=== PATIENT | male | born 1935 | race Caucasian/White ===

== ENCOUNTER 2020-02-02 07:12 | Inpatient (IN) | payer MEDICARE, OTHER ==
[~2020-02-02] VITALS: Ht 180.3 cm; Wt 85.7 kg
[2020-02-02] VITALS (15 sets, daily range): BP systolic 121–162; BP diastolic 49–106
--- NOTE | 2020-02-02 07:15 | NUR ---
PT DOES NOT HAVE A HX OF SEIZURES. PER EMS, PT'S STATED THAT THE PT FELL AND HIT HIS HEAD THE OTHER DAY. PT HAS HX OF FALLS.
--- NOTE | 2020-02-02 07:15 | NUR ---
IV LINE ESTABLISHED BLOOD DRAWN AND SENT TO LAB.
--- NOTE | 2020-02-02 07:15 | NUR ---
WICHO RA WITH A C/O MULTIPLE FOCAL SEIZURES AT HOME AND A FEW EN ROUTE TO THE HOSPITAL. PT IS AA&O X3. DR ARCINIEGA IS AT THE BEDSIDE. PT IS ON THE MONITOR AND POX. SR UP X2 AND PADDED. SEIZURE PRECAUTIONS IMPLEMENTED.
--- NOTE | 2020-02-02 07:20 | NUR ---
PT APPEARS TO BE HAVING A SEIZURE. DR ARCINIEGA IS AT THE BEDSIDE. SEIZURE RULED OUT BY DR ARCINIEGA. EKG ORDERED.
[2020-02-02 07:34] LABS: BASOPHILS # (AUTO) 0.1 /CMM (0.0-0.2); BASOPHILS % (AUTO) 0.6 % (0.0-2.0); EOSINOPHILS % (AUTO) 0.2 % (0.0-6.0); HEMATOCRIT 35 % (39-51); HEMOGLOBIN 10.6 g/dL (13.5-17.5); LYMPHOCYTES # (AUTO) 4.7 /CMM (0.8-4.8); MEAN CORPUSCULAR HGB CONC 31 g/dl (31.0-36.0); MEAN CORPUSCULAR VOLUME 80 fL (80-96); MONOCYTES % (AUTO) 5.7 % (2.0-12.0); NEUTROPHILS # (AUTO) 12.1 /CMM (1.8-8.9); NEUTROPHILS % (AUTO) 67.5 % (43.0-81.0); PLATELET COUNT (AUTO) 240 /CMM (150-450); RED BLOOD CELL COUNT(AUTO) 4.33 MIL/uL (4.5-6.0)
[2020-02-02 07:42] LABS: CARBON DIOXIDE 24 mmol/L (21-32); CHLORIDE 98 mmol/L (98-107); GLUCOSE 146 mg/dL (74-106); POTASSIUM 4.2 mmol/L (3.5-5.1); SODIUM SERUM 136 mmol/L (136-145); UREA NITROGEN, BLOOD 77 mg/dL (7-18)
[2020-02-02 07:51] LABS: CREATININE 9.5 mg/dL (0.6-1.3); MAGNESIUM 2.6 mg/dL (1.8-2.4)
--- NOTE | 2020-02-02 07:52 | NUR ---
areli López.5 made aware.
[2020-02-02 07:55] LABS: ALANINE AMINOTRANSFERASE 28 U/L (12-78); ALBUMIN 3.5 g/dL (3.4-5.0); ALKALINE PHOSPHATASE 84 U/L (46-116); ASPARTATE AMINOTRANSFERASE 8 U/L (15-37); BILIRUBIN,DIRECT 0.2 mg/dL (0.0-0.2); BILIRUBIN,TOTAL 0.5 mg/dL (0.2-1.0); TOTAL PROTEIN, SERUM 7.2 g/dL (6.4-8.2)
--- NOTE | 2020-02-02 08:07 | NUR ---
daughter blaine left contact # [phone], dialysis, [facility]
--- NOTE | 2020-02-02 08:09 | NUR ---
PT IS BACK FROM THE CT SCAN. V/S STABLE.
--- NOTE | 2020-02-02 08:15 | NUR ---
SUBMITTED MOVE SHEET AND CALLED FOR TELE BED. EPIC PAGED.
[2020-02-02] MEDS ORDERED: VANCOMYCIN 1 GM in IV D5W 250 ML IV ONE (09:00)
[2020-02-02] MEDS ORDERED: PIPERACILLIN /TAZOBACTAM 3.375 G in IV D5W 50 ML IV ONE (09:00)
--- NOTE | 2020-02-02 09:02 | NUR ---
CALLED PHARMACY FOR ANTIBIOTIC.
[2020-02-02] MEDS ORDERED: GABA-532 PO (09:03)
[2020-02-02] MEDS ORDERED: AMIO100T4 PO (09:03)
[2020-02-02] MEDS ORDERED: TRAM50TA2 PO (09:03)
[2020-02-02] MEDS ORDERED: FOLI0.8T23 PO (09:03)
[2020-02-02] MEDS ORDERED: AMLO10TA7 PO (09:03)
[2020-02-02] MEDS ORDERED: APIX2.5T PO (09:03)
[2020-02-02] MEDS ORDERED: EZET10TA32 PO (09:03)
[2020-02-02] MEDS ORDERED: SIMV10TA98 PO (09:03)
--- NOTE | 2020-02-02 09:43 | NUR ---
SPOKED TO PT'S DAUGHTER MELISSA FOR PT ADMISSION.
[2020-02-02] MEDS ORDERED: MAGNESIUM HYDROXIDE 30 ML UDC PO PRN (10:00)
[2020-02-02] MEDS ORDERED: Z GUARD REMEDY 2 OZ OINT TP PRN (10:00)
[2020-02-02] MEDS ORDERED: HYDROCODONE/APAP 5/325MG 1 EACH TABLET PO PRN (10:00)
[2020-02-02] MEDS ORDERED: MAG HYDROX/AL HYDROX/SIMETH 30 ML UDC PO PRN (10:00)
[2020-02-02] MEDS ORDERED: ACETAMINOPHEN 325 MG TABLET PO PRN (10:00)
[2020-02-02] MEDS ORDERED: ZOLPIDEM TARTRATE 5 MG TABLET PO PRN (10:00)
[2020-02-02] MEDS ORDERED: ONDANSETRON HCL/PF 4 MG/2 ML VIAL IVP PRN (10:00)
--- NOTE | 2020-02-02 10:55 | NUR ---
REPORT GIVEN TO VAN DOVE FOR CATRACHITA.
--- NOTE | 2020-02-02 11:30 | NUR ---
PATIENT ADMITTED FROM ER WITH DIAGNOSIS OF NEW ONSET SEIZURE VS CARDIAC ETIOLOGY, SIC SINUS SYNDROME , SCHEDULE FOR PPM PLACEMENT AT 1500 TODAY. PATIENT AWAKE, ALERT AND ORIENTED, ANSWERS APPROPRIATELY, FOLLOWS COMMANDS. AFIB WITH RVR ON MONITOR 120'S. NORMOTENSIVE. AFEBRILE. NO RESPIRATORY DISTRESS. DENIES CHEST PAIN OR ANY DISCOMFORT. PLAN OF CARE DISCUSSED. KEPT ON NPO. ADMISSION ASSESSMENT INITIATED.
--- NOTE | 2020-02-02 12:00 | NUR ---
RENAL CONSULT BY DR. BOO. PER HD RN MD KIMBERLY HAS ORDER FOR HD FOR 2HRS. MADE AWARE THAT PATIENT HAS SCHEDULE FOR PACEMAKER PLACEMENT AT 1500. STATED" MD AWARE AND OKAYED TO DO HD".
--- NOTE | 2020-02-02 12:15 | NUR ---
DR. RUSS , ANESTHESIA IN UNIT, NOTIFIED OF PATIENT. MD SPOKE TO HD RN TO SHORTEN HD DUE TO SCHEDULED PROCEDURE.
--- NOTE | 2020-02-02 12:30 | NUR ---
PATIENT DAUGHTER MELISSA CALLED-UPDATED WITH PATIENT CONDITION AND PLAN OF CARE INCLUDING SURGICAL PROCEDURE FOR PERMANENT PACEMAKER PLACEMENT.
--- NOTE | 2020-02-02 12:50 | NUR ---
HD COMPLETED -1.5L OUT. BP REMAINS STABLE. AFIB >110. NO PAUSES NOTED.
--- NOTE | 2020-02-02 14:00 | NUR ---
MAINTAINED ON NPO. NO VERBAL COMPLAINTS. REMAINS AFIB 90'S-100'S. BP STABLE.
[2020-02-02] MEDS ORDERED: LIDOCAINE HCL/MPF 1% 30 ML VIAL IJ ONE (14:35)
[2020-02-02] MEDS ORDERED: ANESTHESIA TRAY IN PYXIS 1 EA TRAY MC ONE (14:35)
[2020-02-02] MEDS ORDERED: FENTANYL PF 100MCG/2ML AMPUL ONE (14:44)
--- NOTE | 2020-02-02 15:00 | NUR ---
PATIENT TO OR .
[2020-02-02] MEDS ORDERED: IOHEXOL 240MG/ML 50 ML IV ONE (15:42)
[2020-02-02] MEDS ORDERED: LIDOCAINE HCL/PF 1% 30 ML SDV ONE (15:42)
[2020-02-02] MEDS ORDERED: CELLULOSE,OXIDIZED 1 EACH EACH MC ONE (16:01)
--- NOTE | 2020-02-02 16:15 | NUR ---
PATIENT BACK FRO OR -S/P PACEMAKER PLACEMENT ON THE LEFT CHEST WALL. WITH POST OP DRESSING INTACT-NO BLEEDING NOTED . POLITICAL REPORTER AT BEDSIDE RECOVERING.
[2020-02-02] MEDS ORDERED: APIXABAN 2.5 MG TABLET PO SCH (17:00)
--- NOTE | 2020-02-02 17:20 | NUR ---
OKAY TO RESUME DIET AND MEDS PER DR. WILLIS.
--- NOTE | 2020-02-02 17:35 | NUR ---
FAMILY UPDATED WITH PATIENT CONDITION POST OP. PATIENT NOW EATING DINNER INDEPENDENTLY. DENIES PAIN AND DISCOMFORT.
[2020-02-02] MEDS: GABAPENTIN 100 MG CAPSULE PO SCH (17:53)
[2020-02-02] MEDS: TRAMADOL HCL 50 MG TABLET PO SCH (17:55)
--- NOTE | 2020-02-02 18:30 | NUR ---
PATIENT REMAINS AWAKE AND ALERT. DENIES PAIN. PPM POST OP SITE WITH NO SIGNS OF BLEEDING.
--- NOTE | 2020-02-02 19:00 | NUR ---
Received patient awake.alert,oriented,coherently converses,speaks Grenadian but understands Grenadian.S/P PPM insertion today via Left upper chest,site (-) bleeding,no hematoma.skin slightly red but no swelling or bruise,denies any pain.Instructed to keep left arm elevated,and no heavy lifting and heavy use of left arm for now. Denies any paion,no weakness,no dizziness.Will closely monitor heart rate and rhythm ,patient on sinus rhythm now9 underlying rhythm with Hx of afib. Comfort care done,needs attended.
[2020-02-02] MEDS: SIMVASTATIN 10 MG TABLET PO SCH (21:16)
--- NOTE | 2020-02-02 22:00 | NUR ---
Noted to have occasional PVC's.Patient asymptomatic.
--- NOTE | 2020-02-02 22:30 | NUR ---
Noted to be V pacing more frequently as the heart rate is slowing down.
[2020-02-03] VITALS (9 sets, daily range): BP systolic 125–160; BP diastolic 63–82
--- NOTE | 2020-02-03 | NUR ---
Stable .asleep,not in any distress. Heart rate Sinus, afib with occasional V pacing.
--- NOTE | 2020-02-03 03:15 | NUR ---
Transferred to Telemetry,stable, awake,alert ,not in any distress, no chest pain. Pacemaker site with no swelling,no bleeding .
--- NOTE | 2020-02-03 03:35 | NUR ---
GOLF PROFESSIONAL NOTE: PATIENT TRANSFERRED FROM ICU VIA ACLS PROTOCOL. AAOX4. NO RESPIRATORY DISTRESS. PLACED ON O2 AT 2 LPM VIA NC, TOLERATING WELL, SPO2 >94%. VEHICLE DAMAGE APPRAISER, HR 100-120s. DENIES ANY DIZZINESS OR HEADACHE. PATIENT HAS AURELIA AV SHUNT AND NEW PACEMAKER ON LEFT UPPER CHEST WITH NO BLEEDING OR SWELLING. ENCOURAGED NOT TO RAISE LEFT ARM ABOVE SHOULDER, AVOID HEAVY LIFTING AND HEAVY USE FOR NOW. PATIENT HAS RIGHT AC G18 AND RIGHT FA G20; BOTH SITES C/D/I, FLUSHING WELL. SAFETY PRECAUTIONS IMPLEMENTED. BED LOCKED, ALARM ON, LOW POSITION. HOB ELEVATED. SIDE RAILS X 2 UP. ENCOURAGED TO USE CALL LIGHT WHEN PATIENT NEEDS ASSISTANCE. CALL LIGHT WITHIN REACH. WILL CONT. TO MONITOR.
--- NOTE | 2020-02-03 06:48 | NUR ---
RN CLOSING NOTE: PATIENT IN BED, ASLEEP, EASILY AROUSABLE. NO SOB. NO C/O PAIN. ON O2 AT 2LPM VIA NC, TOLERATING WELL, UNLABORED BREATHING. IN STABLE CONDITION. LEFT CHEST WALL PACEMAKER IN PLACE. NO BLEEDING OR SWELLING NOTED. PATIENT IN STABLE CONDITION AT THIS TIME. ENDORSE TO ONCOMING SHIFT RN FOR CONTINUITY OF CARE.
--- NOTE | 2020-02-03 07:30 | NUR ---
OPENING NOTES Received pt from etcher enameling nurse, pt remains in bed, in stable condition, A/Ox4, speaking Setswana,. Pt receiving O2 via nasal canula on 2L, tolerating well with Resp rate of 95%, no s/sx of SOB, or distress noted. Patient is able to ambulate in the bathroom with assistance. Patient is on Telemonitor, showing Sinus Tach in 110-118, Skin is intact, new pacemaker(placed on 02/02/2020) on the left chest noted, no s/sx of infection, skin is intact, Two IV site noted on R AC #18 and R Hand # 20, intact and patent, Left AV shunt noted, intact; Safety measures provided, call light within reach, bed in lowest position, will continue to monitor
[2020-02-03 08:05] LABS: BASOPHILS # (AUTO) 0.1 /CMM (0.0-0.2); BASOPHILS % (AUTO) 0.6 % (0.0-2.0); EOSINOPHILS % (AUTO) 0.2 % (0.0-6.0); HEMATOCRIT 32 % (39-51); HEMOGLOBIN 9.9 g/dL (13.5-17.5); LYMPHOCYTES # (AUTO) 1.8 /CMM (0.8-4.8); LYMPHOCYTES % (AUTO) 13.7 % (20.0-44.0); MEAN CORPUSCULAR HGB CONC 31 g/dl (31.0-36.0); MEAN CORPUSCULAR VOLUME 79 fL (80-96); MONOCYTES # (AUTO) 1.2 /CMM (0.1-1.30); MONOCYTES % (AUTO) 9.3 % (2.0-12.0); NEUTROPHILS % (AUTO) 76.2 % (43.0-81.0); PLATELET COUNT (AUTO) 216 /CMM (150-450); RED BLOOD CELL COUNT(AUTO) 4.01 MIL/uL (4.5-6.0); WHITE BLOOD COUNT (AUTO) 13.1 K/uL (4.3-11.0)
[2020-02-03 08:29] LABS: ALANINE AMINOTRANSFERASE 24 U/L (12-78); ALBUMIN 2.9 g/dL (3.4-5.0); ALKALINE PHOSPHATASE 70 U/L (46-116); ASPARTATE AMINOTRANSFERASE 7 U/L (15-37); BILIRUBIN,TOTAL 0.6 mg/dL (0.2-1.0); CALCIUM, SERUM 9.4 mg/dL (8.5-10.1); CARBON DIOXIDE 24 mmol/L (21-32); CHLORIDE 98 mmol/L (98-107); CHOLESTEROL 101 mg/dL (<200); GLUCOSE 84 mg/dL (74-106); HDL CHOLESTEROL 70 mg/dL (40-60); LDL 24 mg/dL (0-99); MAGNESIUM 2.5 mg/dL (1.8-2.4); PHOSPHORUS 7.9 mg/dL (2.5-4.9); POTASSIUM 4.9 mmol/L (3.5-5.1); SODIUM SERUM 135 mmol/L (136-145); TOTAL PROTEIN, SERUM 6.8 g/dL (6.4-8.2); TRIGLYCERIDES 68 mg/dL (30-150); UREA NITROGEN, BLOOD 75 mg/dL (7-18)
[2020-02-03 08:37] LABS: CREATININE 9.5 mg/dL (0.6-1.3)
[2020-02-03] MEDS: VIT B CMPLX 3/FA/VIT C/BIOTIN 1 TAB TABLET PO SCH (08:43)
[2020-02-03] MEDS: EZETIMIBE 10 MG TABLET PO SCH (08:43)
[2020-02-03] MEDS: AMLODIPINE BESYLATE 10 MG TABLET PO SCH (08:43)
[2020-02-03] MEDS: TRAMADOL HCL 50 MG TABLET PO SCH ×2 (08:44→17:06)
[2020-02-03] MEDS: GABAPENTIN 100 MG CAPSULE PO SCH ×2 (08:44→17:06)
[2020-02-03] MEDS ORDERED: Medication Not On Formulary EA (Amiodarone HCl 1 TAB) PO SCH (09:00)
--- NOTE | 2020-02-03 09:00 | NUR ---
RN NOTES Pt's daughter Lulu called and requested to talk to her father, set up phone in patient room
[2020-02-03] MEDS: METOPROLOL TARTRATE 50 MG TABLET PO SCH ×2 (12:45→17:05)
[2020-02-03] MEDS: APIXABAN 2.5 MG TABLET PO SCH ×2 (12:58→17:06)
--- NOTE | 2020-02-03 13:00 | NUR ---
HOLD METOPROLOL DUE DIALYSES PROCEDURE INITIATION
--- NOTE | 2020-02-03 18:47 | NUR ---
RN CLOSING NOTE Pt remains on bed, resting,TOLEARTING WELL nc AND o2 FLOW, NO SIGNS OF DISTESS, , comfort needs met, safety measures implemented, IV dressing changed, call light in reach, BED IN LOWEST POSITION, WILL ENDORSE TO PM NURSE TO CATRACHITA
--- NOTE | 2020-02-03 19:50 | NUR ---
RN OPENING NOTE RECEIVED PT IN BED, APPEARS RESTING COMFORTABLY. A/OX4 , NO S/SX OF ACUTE DISTRESS AT THIS TIME. NO SOB NOTED. PATIENT'S BREATHING IS EVEN AND UNLABORED. PATIENT IS ON 2 L OF OXYGEN VIA NC; TOLERATING WELL. PATIENT ON TELE MONITOR READING SR, HR AT 100'S. NOTED IV SITE ON RAC#18, R HAND#20,BOTH PATENT AND FLUSHING WELL, NO S/S OF INFECTION OR INFILTRATION. AV SHUNT NOTED AT AURELIA, THRILL/BRUIT PRESENT; PATIENT IS AMBULATORY, WITH URINAL AND BEDPAN AT BEDSIDE. SAFETY/SEIZURE PRECAUTIONS IMPLEMENTED PER PROTOCOL. PATIENT BED ALARM IS ON. HEAD OF BED ELEVATED. BED IS LOCKED, IN LOWEST POSITION AND SIDE RAILS UP. CALL LIGHT WITHIN REACH OF THE PATIENT. WILL CONTINUE TO MONITOR AND REASSESS FOR ANY CHANGES.
[2020-02-03] MEDS: SIMVASTATIN 10 MG TABLET PO SCH (21:24)
[2020-02-04] VITALS (7 sets, daily range): BP systolic 125–150; BP diastolic 57–97
[2020-02-04] MEDS: METOPROLOL TARTRATE 50 MG TABLET PO SCH ×5 (02:53→23:31)
--- NOTE | 2020-02-04 04:25 | NUR ---
0425 PATIENT COVID19 RESULT NEGATIVE, MOVED TO NON ISOLATION ROOM IN 116-2. EXPLAINED TO PATIENT REASON FOR MOVE AND AGREED.
[2020-02-04 06:52] LABS: BASOPHILS # (AUTO) 0.1 /CMM (0.0-0.2); BASOPHILS % (AUTO) 0.9 % (0.0-2.0); EOSINOPHILS % (AUTO) 1.4 % (0.0-6.0); HEMATOCRIT 34 % (39-51); HEMOGLOBIN 10.3 g/dL (13.5-17.5); LYMPHOCYTES # (AUTO) 2.1 /CMM (0.8-4.8); LYMPHOCYTES % (AUTO) 17.9 % (20.0-44.0); MEAN CORPUSCULAR HGB CONC 31 g/dl (31.0-36.0); MEAN CORPUSCULAR VOLUME 80 fL (80-96); MONOCYTES # (AUTO) 1.3 /CMM (0.1-1.30); MONOCYTES % (AUTO) 11.2 % (2.0-12.0); NEUTROPHILS # (AUTO) 7.8 /CMM (1.8-8.9); NEUTROPHILS % (AUTO) 68.6 % (43.0-81.0); PLATELET COUNT (AUTO) 201 /CMM (150-450); RED BLOOD CELL COUNT(AUTO) 4.21 MIL/uL (4.5-6.0); WHITE BLOOD COUNT (AUTO) 11.4 K/uL (4.3-11.0)
[2020-02-04 07:08] LABS: ALANINE AMINOTRANSFERASE < 6 U/L (12-78); ALBUMIN 2.8 g/dL (3.4-5.0); ALKALINE PHOSPHATASE 66 U/L (46-116); ASPARTATE AMINOTRANSFERASE 5 U/L (15-37); BILIRUBIN,TOTAL 0.5 mg/dL (0.2-1.0); CALCIUM, SERUM 9.5 mg/dL (8.5-10.1); CARBON DIOXIDE 28 mmol/L (21-32); CHLORIDE 100 mmol/L (98-107); GLUCOSE 84 mg/dL (74-106); MAGNESIUM 2.6 mg/dL (1.8-2.4); PHOSPHORUS 7.5 mg/dL (2.5-4.9); POTASSIUM 4.5 mmol/L (3.5-5.1); SODIUM SERUM 138 mmol/L (136-145); TOTAL PROTEIN, SERUM 7.2 g/dL (6.4-8.2); UREA NITROGEN, BLOOD 61 mg/dL (7-18)
[2020-02-04 07:13] LABS: CREATININE 8.4 mg/dL (0.6-1.3)
--- NOTE | 2020-02-04 07:26 | NUR ---
PATIENT IN STABLE CONDITION. ENDORSED TO MORNING SHIFT FOR CONTINUATION OF CARE
[2020-02-04] MEDS: TRAMADOL HCL 50 MG TABLET PO SCH ×2 (09:45→18:13)
[2020-02-04] MEDS: VIT B CMPLX 3/FA/VIT C/BIOTIN 1 TAB TABLET PO SCH (09:45)
[2020-02-04] MEDS: EZETIMIBE 10 MG TABLET PO SCH (09:45)
[2020-02-04] MEDS: AMIODARONE HCL 200 MG TABLET PO SCH (09:46)
[2020-02-04] MEDS: AMLODIPINE BESYLATE 10 MG TABLET PO SCH (09:46)
[2020-02-04] MEDS: GABAPENTIN 100 MG CAPSULE PO SCH ×2 (09:46→18:13)
[2020-02-04] MEDS: APIXABAN 2.5 MG TABLET PO SCH ×2 (09:48→18:14)
--- NOTE | 2020-02-04 12:18 | NUR ---
RECEIVED PATIENT FROM CAMPBELL WILSON
--- NOTE | 2020-02-04 19:37 | NUR ---
RN CLOSING NOTE Patient in bed calm and relaxed. No signs of distress. All due meds given. Vital signs within normal limits. No signs of pain or discomfort. Cont on hospitalization. Kept clean and dry wound dressing done. Safety measures reinforced. Call light within reach. Bed locked and on lowest position. Endorsed to orthopedic shoe fitter nurse for litzy.
[2020-02-04] MEDS: SIMVASTATIN 10 MG TABLET PO SCH (21:47)
[2020-02-05] VITALS (7 sets, daily range): BP systolic 94–145; BP diastolic 50–78
--- NOTE | 2020-02-05 04:10 | NUR ---
RN NOTE REASSESSED PATIENT O2 SATURATION DROPPED TO 88. NOTED O2 VIA NC NOT IN PLACE. ADVISED PATIENT TO MAINTAIN NC ON AT ALL TIMES. SATURATION RECHECKED AND REVEALED 96%
[2020-02-05] MEDS: METOPROLOL TARTRATE 50 MG TABLET PO SCH ×3 (06:00→18:22)
[2020-02-05 06:32] LABS: BASOPHILS # (AUTO) 0.1 /CMM (0.0-0.2); BASOPHILS % (AUTO) 0.9 % (0.0-2.0); EOSINOPHILS % (AUTO) 2.1 % (0.0-6.0); HEMATOCRIT 30 % (39-51); HEMOGLOBIN 9.4 g/dL (13.5-17.5); LYMPHOCYTES # (AUTO) 2.6 /CMM (0.8-4.8); LYMPHOCYTES % (AUTO) 19.5 % (20.0-44.0); MEAN CORPUSCULAR HGB CONC 31 g/dl (31.0-36.0); MEAN CORPUSCULAR VOLUME 79 fL (80-96); MONOCYTES # (AUTO) 1.1 /CMM (0.1-1.30); MONOCYTES % (AUTO) 8.6 % (2.0-12.0); NEUTROPHILS # (AUTO) 9.1 /CMM (1.8-8.9); NEUTROPHILS % (AUTO) 68.9 % (43.0-81.0); PLATELET COUNT (AUTO) 194 /CMM (150-450); RED BLOOD CELL COUNT(AUTO) 3.81 MIL/uL (4.5-6.0); WHITE BLOOD COUNT (AUTO) 13.1 K/uL (4.3-11.0)
[2020-02-05 06:41] LABS: CALCIUM, SERUM 9.2 mg/dL (8.5-10.1); CHLORIDE 99 mmol/L (98-107); GLUCOSE 84 mg/dL (74-106); POTASSIUM 5.1 mmol/L (3.5-5.1); SODIUM SERUM 137 mmol/L (136-145)
[2020-02-05 06:48] LABS: CARBON DIOXIDE 24 mmol/L (21-32)
--- NOTE | 2020-02-05 06:58 | NUR ---
RN CLOSING NOTE PATIENT REMAINS IN ROOM. NO SIGNS OF RESPIRATORY. SAFETY MEASURES IMPLEMENTED, BED IN LOWEST POSITION, LOCKED, SIDE RAILS UP, CALL LIGHT WITHIN REACH. ENDORSED TO INCOMING SHIFT RN FOR CONTINUITY OF CARE. LATEST O2 SATURATION 96%
[2020-02-05 07:49] LABS: CREATININE 10.4 mg/dL (0.6-1.3); UREA NITROGEN, BLOOD 92 mg/dL (7-18)
--- NOTE | 2020-02-05 08:45 | NUR ---
MS RN NOTES PATIENT IS A/OX 4 BULGARIAN SPEAKER. NO SOB OR DISCOMFORT NOTED ON 2 L NASAL CANNULA SATURATING 97%. REPORT GIVEN TO FERNANDA AND PATIENT WAS TRANSFERRED TO SECOND FLOOR 202 VIA WHEELCHAIR. ALL BELONGINGS RETURNED TO PATIENT.
[2020-02-05] MEDS: AMIODARONE HCL 200 MG TABLET PO SCH (09:00)
[2020-02-05] MEDS: AMLODIPINE BESYLATE 10 MG TABLET PO SCH (09:00)
--- NOTE | 2020-02-05 09:30 | NUR ---
ms rn received a transfer from [facility] awake,alert,orientedx4,not in any form of distress, respirations even and unlabored,no sob noted, lungs are clear,abdomen soft,positive bowel sounds,denies pain at this time, all needs attended.
--- NOTE | 2020-02-05 09:45 | NUR ---
ms jesika breakfast served,due meds given,tolerated well, held b/p meds at this time, patient will have hd today.
[2020-02-05] MEDS: VIT B CMPLX 3/FA/VIT C/BIOTIN 1 TAB TABLET PO SCH (10:11)
[2020-02-05] MEDS: EZETIMIBE 10 MG TABLET PO SCH (10:12)
[2020-02-05] MEDS: TRAMADOL HCL 50 MG TABLET PO SCH ×2 (10:12→18:22)
[2020-02-05] MEDS: GABAPENTIN 100 MG CAPSULE PO SCH ×2 (10:13→18:22)
[2020-02-05] MEDS: APIXABAN 2.5 MG TABLET PO SCH ×2 (10:25→18:23)
--- NOTE | 2020-02-05 15:36 | NUR ---
ms rn on bed, hd going on tolerated well.
--- NOTE | 2020-02-05 16:00 | NUR ---
MS VAN HD DONE W/ 3000ML OUT.
--- NOTE | 2020-02-05 19:00 | NUR ---
MS RN ON BED,NO DISTRESS NOTED,ALL NEEDS ATTENDED.
--- NOTE | 2020-02-05 20:03 | NUR ---
Received in bed alert and orientated smiling. Alert and orientated X4 AV shunt left upper arm
[2020-02-05] MEDS: SIMVASTATIN 10 MG TABLET PO SCH (22:16)
[2020-02-06] VITALS: BP 137/86
[2020-02-06] MEDS: METOPROLOL TARTRATE 50 MG TABLET PO SCH ×3 (00:18→11:44)
[2020-02-06 04:00] VITALS: BP 129/71
--- NOTE | 2020-02-06 05:56 | NUR ---
ENDING NOTES: IN BED AWAKENED FOR AM MEDICATION, AROUSES EASILY, BUT NOTED HE IS LIGHTLY CONFUSED. COMMENTED" I NEED TO GET DRESSED AND GO HELP HR DO WORK" REMINDED HIM HE WAS IN A HOSPITAL AND THE TIME. HE DID EXCEPT THIS AND GOT BACK TO BED. BED ALARM ON AND HIS CALL LIGHT WITHIN HIS REACH. DRESSING LEFT C/W CDI SP PACEMAKER SITE01/28
[2020-02-06 07:20] LABS: BASOPHILS # (AUTO) 0.2 /CMM (0.0-0.2); BASOPHILS % (AUTO) 1.3 % (0.0-2.0); EOSINOPHILS % (AUTO) 2.3 % (0.0-6.0); HEMATOCRIT 31 % (39-51); HEMOGLOBIN 9.7 g/dL (13.5-17.5); LYMPHOCYTES # (AUTO) 2.7 /CMM (0.8-4.8); LYMPHOCYTES % (AUTO) 16.6 % (20.0-44.0); MEAN CORPUSCULAR HGB CONC 31 g/dl (31.0-36.0); MEAN CORPUSCULAR VOLUME 80 fL (80-96); MONOCYTES # (AUTO) 1.3 /CMM (0.1-1.30); MONOCYTES % (AUTO) 8.1 % (2.0-12.0); NEUTROPHILS # (AUTO) 11.8 /CMM (1.8-8.9); NEUTROPHILS % (AUTO) 71.7 % (43.0-81.0); PLATELET COUNT (AUTO) 201 /CMM (150-450); RED BLOOD CELL COUNT(AUTO) 3.86 MIL/uL (4.5-6.0); WHITE BLOOD COUNT (AUTO) 16.4 K/uL (4.3-11.0)
--- NOTE | 2020-02-06 07:20 | NUR ---
MS RN NOTES RECEIVED PT IN BED, ASLEEP, EASILY AROUSED, A/O X4. PT ON RA, WITH NO ACUTE RESPIRATORY DISTRESS NOTED. PT DENIES ANY PAIN OR DISCOMFORT AT THIS TIME. PT DENIES ANY CONCERNS OR QUESTION WELL. PIV TO RAC G18, FLUSHED WITH NS, INTACT AND OPERATIONAL. AURELIA AV SHUNT FOR HD ACCESS NOTED. PT KEPT COMFORTABLE. CALL LIGHT KEPT WITHIN REACH. PT'S BED IN LOWEST, LOCKED POSITION WITH SR X3. WILL CONTINUE PLAN OF CARE.
[2020-02-06 07:43] LABS: CALCIUM, SERUM 9.2 mg/dL (8.5-10.1); CARBON DIOXIDE 25 mmol/L (21-32); CHLORIDE 102 mmol/L (98-107); CREATININE 7.4 mg/dL (0.6-1.3); GLUCOSE 91 mg/dL (74-106); SODIUM SERUM 139 mmol/L (136-145); UREA NITROGEN, BLOOD 64 mg/dL (7-18)
[2020-02-06 08:00] VITALS: BP 105/60
[2020-02-06] MEDS: VIT B CMPLX 3/FA/VIT C/BIOTIN 1 TAB TABLET PO SCH (08:00)
[2020-02-06] MEDS: EZETIMIBE 10 MG TABLET PO SCH (08:00)
[2020-02-06] MEDS: GABAPENTIN 100 MG CAPSULE PO SCH (08:00)
[2020-02-06] MEDS: APIXABAN 2.5 MG TABLET PO SCH (08:01)
[2020-02-06] MEDS: AMLODIPINE BESYLATE 10 MG TABLET PO SCH (08:02)
[2020-02-06] MEDS: TRAMADOL HCL 50 MG TABLET PO SCH (08:03)
[2020-02-06] MEDS: AMIODARONE HCL 200 MG TABLET PO SCH (08:04)
--- NOTE | 2020-02-06 09:00 | NUR ---
MS RN NOTES SEEN AND EVALUATED BY DR. DOLAN, NO NEED FOR ABG TO BE DONE TODAY. PT ON RA, OVERNIGHT WITH NO RESPIRATORY DISTRESS NOTED. WILL CONTINUE TO MONITOR.
[2020-02-06] MEDS ORDERED: METO25TA6 PO (10:39)
[2020-02-06] MEDS ORDERED: AMIO200T7 PO (10:39)
[2020-02-06 11:44] VITALS: BP 119/57
--- NOTE | 2020-02-06 12:15 | NUR ---
MS RN NOTES RECEIVED CALL FROM THE DAUGHTER/MELISSA, REQUESTED NOT TO GIVE TRAMADOL TO HER DAD DUE TO EPISODES OF CONFUSION. TO REASSESS PT. WILL MONITOR PT.
--- NOTE | 2020-02-06 13:50 | NUR ---
MS EXPORT TRAFFIC DEPARTMENT MANAGER NOTES PT AWAKE, A/O X3-4. PT ON RA, WITH NO ACUTE RESPIRATORY DISTRESS NOTED. PT DENIES ANY PAIN OR DISCOMFORT AT THE TIME OF DISCHARGE. PIV TO RAC G18, REMOVED AND APPLIED DRY DRESSING. AURELIA AV SHUNT FOR HD ACCESS NOTED. LCW DRESSING, DRY AND INTACT. ALL NEEDS AND CARE ATTENDED. PT'S DISCHARGE INSTRUCTIONS AND INVENTORY LIST, REVIEWED AND SIGNED BY PT. GIVEN INSTRUCTIONS THE DAUGHTER/MELISSA PERSONALLY WELL. VS STABLE AND RECORDED. FOLLOW UP WITH DR WILLIS PROVIDED WELL. SKIN INTACT, NO PICTURES TAKEN AND FILED IN THE CHART. PT ESCORTED TO THE LOBBY VIA WHEELCHAIR. PT LEFT THE UNIT AT 1345.
== END 2020-02-06 13:45 | disposition home or self-care (01) | DRG 242 ==
LOC: ER 07:13 → ICU 10:41 → TELE1 02-03 03:15 → MEDSG1 02-04 21:37 → TELE2 02-05 08:00 → MEDSG2 02-05 09:04
PROVIDERS: ADMIT Family Medicine; ATTEND Internal Medicine
PROC: 0JH604Z Insertion of Pacemaker, Single Chamber into Chest Subcutaneous Tissue and Fascia, Open Approach (ICD-10-PCS; principal; 2020-02-02)
PROC: 02HK3JZ Insertion of Pacemaker Lead into Right Ventricle, Percutaneous Approach (ICD-10-PCS; 2020-02-02)
PROC: 5A1D70Z Performance of Urinary Filtration, Intermittent, Less than 6 Hours Per Day (ICD-10-PCS; 2020-02-02)
DX: I49.5 Sick sinus syndrome (principal); N18.6 End stage renal disease; I12.0 Hypertensive chronic kidney disease with stage 5 chronic kidney disease or end stage renal disease; J98.11 Atelectasis; G40.909 Epilepsy, unspecified, not intractable, without status epilepticus; Z99.2 Dependence on renal dialysis; E11.22 Type 2 diabetes mellitus with diabetic chronic kidney disease; D63.8 Anemia in other chronic diseases classified elsewhere; E11.65 Type 2 diabetes mellitus with hyperglycemia; K21.9 Gastro-esophageal reflux disease without esophagitis; N40.0 Benign prostatic hyperplasia without lower urinary tract symptoms; Z79.01 Long term (current) use of anticoagulants; Z85.528 Personal history of other malignant neoplasm of kidney; Z87.891 Personal history of nicotine dependence; D72.829 Elevated white blood cell count, unspecified; N25.0 Renal osteodystrophy; Z91.81 History of falling; Z90.5 Acquired absence of kidney
CPT/HCPCS: 36415; 70450-TC; 71045-TC; 80048-TC; 80053-TC; 80061-TC; 80076-TC; 82962-TC; 83605-TC; 83735-TC; 84100-TC; 84484-TC; 85025-TC; 85730-TC; 87040-TC; 87081-TC; 90935-TC; 93307-TC; C1769; C1786; G0378; J2543; J2704; J3010; J3370; J3490; J7060; Q9966; U0003-CS

== ENCOUNTER 2020-12-28 13:56 | Emergency (ER) | payer MEDICARE, OTHER ==
[~2020-12-28] VITALS: Ht 165.1 cm; Wt 84.4 kg
[~2020-12-28 13:56] MED LIST: AMIO100T4 PO; AMIO200T7 PO; AMLO-213 PO; APIX2.5T PO; EZET10TA32 PO; FOLI0.8T23 PO; GABA-532 PO; METO25TA6 PO; SIMV10TA98 PO; TRAM50TA2 PO
--- NOTE | 2020-12-28 14:15 | NUR ---
BIBDAUGHTER FOR BLEEDING ON LT SHUNT. MIN TO ALMOST NO BLEEDING NOTED AT THE SITE. DENIES PAIN. WILL CONTINUE TO MONITOR THE PATIENT.
[2020-12-28 14:24] VITALS: BP 151/72
--- NOTE | 2020-12-28 14:45 | NUR ---
The patient alert and oriented x4. Patient discharged to home in stable condition. Written and verbal after care instructions given. Patient verbalizes understanding of instruction.
== END 2020-12-28 14:45 | disposition home or self-care (01) ==
LOC: ER 13:56
DX: T82.511A Breakdown (mechanical) of surgically created arteriovenous shunt, initial encounter (principal); I12.0 Hypertensive chronic kidney disease with stage 5 chronic kidney disease or end stage renal disease; E11.22 Type 2 diabetes mellitus with diabetic chronic kidney disease; N18.6 End stage renal disease; I48.91 Unspecified atrial fibrillation; K21.9 Gastro-esophageal reflux disease without esophagitis; Z99.2 Dependence on renal dialysis; Z79.899 Other long term (current) drug therapy

== ENCOUNTER 2023-07-22 13:39 | Inpatient (IN) | payer MEDICARE, OTHER ==
[~2023-07-22] VITALS: Ht 162.6 cm; Wt 74.8 kg
[2023-07-22] VITALS (12 sets, daily range): BP systolic 72–150; BP diastolic 19–131; TEMP 98–98.2; O2SAT 94–99
[2023-07-22] MEDS ORDERED: VANCOMYCIN 1 GM in IV D5W 250 ML IV ONE (14:00)
[2023-07-22] MEDS ORDERED: PIPERACILLIN /TAZOBACTAM 3.375 G in IV D5W 50 ML IV ONE (14:00)
[2023-07-22] MEDS ORDERED: IV NS 0.9% 1,000 ML BAG IV ONE (14:30)
[2023-07-22 14:35] LABS: BASOPHILS % (AUTO) 0.2 % (0.0-2.0); HEMATOCRIT 23 % (39-51); HEMOGLOBIN 7.2 g/dL (13.5-17.5); LYMPHOCYTES # (AUTO) 0.8 K/uL (0.8-4.8); LYMPHOCYTES % (AUTO) 7.6 % (20.0-44.0); MEAN CORPUSCULAR HEMOGLOBIN 25 PG (26.0-33.0); MEAN CORPUSCULAR HGB CONC 31 g/dl (31.0-36.0); MEAN CORPUSCULAR VOLUME 80 fL (80-96); MONOCYTES # (AUTO) 0.6 K/uL (0.1-1.30); MONOCYTES % (AUTO) 5.7 % (2.0-12.0); NEUTROPHILS # (AUTO) 9.4 K/uL (1.8-8.9); NEUTROPHILS % (AUTO) 86.5 % (43.0-81.0); PLATELET COUNT (AUTO) 214 K/uL (150-450); RED BLOOD CELL COUNT(AUTO) 2.87 MIL/uL (4.5-6.0); RED CELL DISTRIBUTION WIDTH 17.1 % (11.5-15.0); WHITE BLOOD COUNT (AUTO) 10.9 K/uL (4.3-11.0)
[2023-07-22 15:10] LABS: CALCIUM, SERUM 9.9 mg/dL (8.5-10.1); CARBON DIOXIDE 23 mmol/L (21-32); POTASSIUM 5.7 mmol/L (3.5-5.1)
[2023-07-22 15:12] LABS: LACTIC ACID 1.9 mmol/L (0.4-2.0)
[2023-07-22 15:17] LABS: INR 1.46 (0.91-1.10); PROTHROMBIN TIME 15.1 SECS (9.2-11.1)
[2023-07-22 15:54] LABS: ALANINE AMINOTRANSFERASE 46 U/L (12-78); ALBUMIN 1.9 g/dL (3.4-5.0); ALKALINE PHOSPHATASE 185 U/L (46-116); ASPARTATE AMINOTRANSFERASE 58 U/L (15-37); BILIRUBIN,DIRECT 0.3 mg/dL (0.0-0.2); BILIRUBIN,TOTAL 0.5 mg/dL (0.2-1.0); TOTAL PROTEIN, SERUM 5.7 g/dL (6.4-8.2)
[2023-07-22 15:55] LABS: CHLORIDE 97 mmol/L (98-107); GLUCOSE 150 mg/dL (74-106); SODIUM SERUM 137 mmol/L (136-145); UREA NITROGEN, BLOOD 220 mg/dL (7-18)
[2023-07-22] MEDS ORDERED: HYDR-4077 PO (16:54)
[2023-07-22] MEDS ORDERED: OMEG1CAP PO (16:54)
[2023-07-22] MEDS ORDERED: METO-357 PO (16:54)
[2023-07-22] MEDS ORDERED: ONDANSETRON HCL/PF 4 MG/2 ML VIAL IVP PRN (17:00)
[2023-07-22] MEDS ORDERED: MORPHINE SULFATE INJ 2 MG/ML DISP.SYRIN IV PRN (17:00)
[2023-07-22] MEDS ORDERED: ACETAMINOPHEN 325 MG TABLET PO PRN (17:00)
[2023-07-22] MEDS ORDERED: Z GUARD REMEDY 4 OZ OINT TP PRN (17:00)
[2023-07-22 20:25] LABS: LYMPHOCYTES % (MANUAL) 11 % (16-48); MONOCYTES % (MANUAL) 4 % (0-11.0); NEUTROPHILS % (MANUAL) 85 (42-76); PLATELET ESTIMATE ADEQUATE
[2023-07-22 20:26] LABS: ANISOCYTOSIS 1+; OVALOCYTES 1+; TEAR DROP CELLS 1+
[2023-07-22] MEDS ORDERED: CEFEPIME 1 GM in IV D5W 50 ML IV SCH (21:00)
[2023-07-22] MEDS ORDERED: APIXABAN 2.5 MG TABLET PO SCH (21:00)
[2023-07-22] MEDS: CIPROFLOXACIN HCL 0.3% 5 ML BOTTLE EACHEYE SCH (21:30)
[2023-07-22] MEDS: GABAPENTIN 100 MG CAPSULE PO SCH (21:47)
[2023-07-22] MEDS ORDERED: SIMVASTATIN 10 MG TABLET PO SCH (22:00)
[2023-07-22] MEDS ORDERED: NOREPINEPHRINE 8MG/250ML RTU 250 ML IV ONE (22:08)
[2023-07-22] MEDS: NOREPINEPHRINE 8 MG in IV NS 0.9% 242 ML IV PRN (22:14)
[2023-07-23] VITALS (84 sets, daily range): BP systolic 48–172; BP diastolic 18–150; TEMP 97.2–98.6; O2SAT 93–100
[2023-07-23] MEDS: CEFEPIME 1 GM in IV D5W 50 ML IV SCH ×2 (00:41→20:16)
[2023-07-23] MEDS: PANTOPRAZOLE 40 MG VIAL IV SCH ×2 (00:41→08:49)
[2023-07-23 01:32] LABS: HEMOGLOBIN 7.3 g/dL (13.5-17.5)
[2023-07-23] MEDS ORDERED: NOREPINEPHRINE 8MG/250ML RTU 250 ML IV ONE (02:20)
[2023-07-23] MEDS: NOREPINEPHRINE 8 MG in IV NS 0.9% 242 ML IV PRN ×7 (02:34→22:02)
[2023-07-23] MEDS: VANCOMYCIN 500 MG in IV D5W 100 ML IV PRN ×2 (04:56→12:57)
[2023-07-23] MEDS ORDERED: VANCOMYCIN 1 GM /D5W 250 ML PB IV ONE (04:56)
[2023-07-23 05:41] LABS: BASOPHILS % (AUTO) 0.1 % (0.0-2.0); HEMATOCRIT 21 % (39-51); LYMPHOCYTES # (AUTO) 0.5 K/uL (0.8-4.8); LYMPHOCYTES % (AUTO) 2.3 % (20.0-44.0); MEAN CORPUSCULAR HEMOGLOBIN 26 PG (26.0-33.0); MEAN CORPUSCULAR HGB CONC 32 g/dl (31.0-36.0); MEAN CORPUSCULAR VOLUME 81 fL (80-96); MONOCYTES # (AUTO) 1.4 K/uL (0.1-1.30); MONOCYTES % (AUTO) 6.8 % (2.0-12.0); NEUTROPHILS # (AUTO) 18.4 K/uL (1.8-8.9); NEUTROPHILS % (AUTO) 90.8 % (43.0-81.0); PLATELET COUNT (AUTO) 212 K/uL (150-450); RED BLOOD CELL COUNT(AUTO) 2.55 MIL/uL (4.5-6.0); RED CELL DISTRIBUTION WIDTH 18.1 % (11.5-15.0); WHITE BLOOD COUNT (AUTO) 20.3 K/uL (4.3-11.0)
[2023-07-23 05:55] LABS: ALANINE AMINOTRANSFERASE 51 U/L (12-78); ALBUMIN 1.9 g/dL (3.4-5.0); ALKALINE PHOSPHATASE 182 U/L (46-116); ASPARTATE AMINOTRANSFERASE 70 U/L (15-37); BILIRUBIN,TOTAL 0.7 mg/dL (0.2-1.0); CALCIUM, SERUM 9.1 mg/dL (8.5-10.1); CARBON DIOXIDE 24 mmol/L (21-32); CHLORIDE 101 mmol/L (98-107); GLUCOSE 182 mg/dL (74-106); PHOSPHORUS 3.4 mg/dL (2.5-4.9); POTASSIUM 3.7 mmol/L (3.5-5.1); SODIUM SERUM 139 mmol/L (136-145); TOTAL PROTEIN, SERUM 5.3 g/dL (6.4-8.2)
[2023-07-23 05:56] LABS: HEMOGLOBIN 6.6 g/dL (13.5-17.5)
[2023-07-23 06:02] LABS: UREA NITROGEN, BLOOD 123 mg/dL (7-18)
[2023-07-23] MEDS: EZETIMIBE 10 MG TABLET PO SCH (08:50)
[2023-07-23] MEDS: CIPROFLOXACIN HCL 0.3% 5 ML BOTTLE EACHEYE SCH ×2 (08:50→16:20)
[2023-07-23 10:04] LABS: HEMOGLOBIN 6.6 g/dL (13.5-17.5)
[2023-07-23 11:23] LABS: ANISOCYTOSIS 1+; BAND % (MANUAL) 2 % (0.0-5.0); BASOPHILS % (MANUAL) 0 % (0.0-2.0); EOSINOPHILS % (MANUAL) 0 % (0-4); LYMPHOCYTES % (MANUAL) 7 % (16-48); MONOCYTES % (MANUAL) 4 % (0-11.0); NEUTROPHILS % (MANUAL) 87 (42-76); OVALOCYTES 1+; PLATELET ESTIMATE ADEQUATE
[2023-07-23] MEDS: PANTOPRAZOLE 40 MG/PACK PACK PO SCH (16:20)
[2023-07-23] MEDS ORDERED: VANCOMYCIN 1 GM in IV D5W 250ml IV ONE (17:00)
[2023-07-23 17:10] LABS: HEMOGLOBIN 7.9 g/dL (13.5-17.5)
[2023-07-23] MEDS: GABAPENTIN 100 MG CAPSULE PO SCH (21:48)
[2023-07-23] MEDS: SIMVASTATIN 20 MG TABLET PO SCH (21:48)
[2023-07-24] VITALS (95 sets, daily range): BP systolic 72–165; BP diastolic 15–147; TEMP 97.2–98.5; O2SAT 90–100
[2023-07-24] MEDS: NOREPINEPHRINE 8 MG in IV NS 0.9% 242 ML IV PRN ×3 (00:50→06:36)
[2023-07-24 01:29] LABS: HEMOGLOBIN 7.6 g/dL (13.5-17.5)
[2023-07-24 05:13] LABS: BASOPHILS % (AUTO) 0.1 % (0.0-2.0); EOSINOPHILS % (AUTO) 0.1 % (0.0-6.0); HEMATOCRIT 24 % (39-51); HEMOGLOBIN 7.6 g/dL (13.5-17.5); LYMPHOCYTES # (AUTO) 0.9 K/uL (0.8-4.8); MEAN CORPUSCULAR HEMOGLOBIN 27 PG (26.0-33.0); MEAN CORPUSCULAR HGB CONC 32 g/dl (31.0-36.0); MEAN CORPUSCULAR VOLUME 82 fL (80-96); MONOCYTES # (AUTO) 1.8 K/uL (0.1-1.30); MONOCYTES % (AUTO) 7.8 % (2.0-12.0); NEUTROPHILS # (AUTO) 19.9 K/uL (1.8-8.9); PLATELET COUNT (AUTO) 227 K/uL (150-450); RED BLOOD CELL COUNT(AUTO) 2.89 MIL/uL (4.5-6.0); RED CELL DISTRIBUTION WIDTH 17.4 % (11.5-15.0); WHITE BLOOD COUNT (AUTO) 22.6 K/uL (4.3-11.0)
[2023-07-24 05:17] LABS: CALCIUM, SERUM 9.3 mg/dL (8.5-10.1); CARBON DIOXIDE 24 mmol/L (21-32); CHLORIDE 95 mmol/L (98-107); CREATININE 5.4 mg/dL (0.6-1.3); GLUCOSE 197 mg/dL (74-106); POTASSIUM 4.2 mmol/L (3.5-5.1); SODIUM SERUM 131 mmol/L (136-145)
[2023-07-24 05:21] LABS: UREA NITROGEN, BLOOD 135 mg/dL (7-18)
[2023-07-24] MEDS: EZETIMIBE 10 MG TABLET PO SCH (09:00)
[2023-07-24] MEDS: PANTOPRAZOLE 40 MG/PACK PACK PO SCH ×2 (09:00→17:00)
[2023-07-24] MEDS: NOREPINEPHRINE 32 MG in IV NS 0.9% 250 ML IV PRN (10:26)
[2023-07-24] MEDS: CIPROFLOXACIN HCL 0.3% 5 ML BOTTLE EACHEYE SCH ×2 (10:28→19:43)
[2023-07-24 13:21] LABS: HEMOGLOBIN 7.3 g/dL (13.5-17.5)
[2023-07-24 18:33] LABS: HEMOGLOBIN 7.8 g/dL (13.5-17.5)
[2023-07-24] MEDS: CEFEPIME 1 GM in IV D5W 50 ML IV SCH (20:50)
[2023-07-24] MEDS: SIMVASTATIN 20 MG TABLET PO SCH (23:08)
[2023-07-24] MEDS: GABAPENTIN 100 MG CAPSULE PO SCH (23:08)
[2023-07-25] VITALS (55 sets, daily range): BP systolic 65–157; BP diastolic 17–99; TEMP 97.5–98; O2SAT 86–100
[2023-07-25] MEDS: NOREPINEPHRINE 32 MG in IV NS 0.9% 250 ML IV PRN (00:33)
[2023-07-25] MEDS: PHENYLEPHRINE 100 MG in IV NS 0.9% 240 ML IV PRN ×3 (03:53→16:27)
[2023-07-25 05:15] LABS: BASOPHILS % (AUTO) 0.1 % (0.0-2.0); HEMATOCRIT 25 % (39-51); HEMOGLOBIN 7.8 g/dL (13.5-17.5); LYMPHOCYTES # (AUTO) 0.5 K/uL (0.8-4.8); LYMPHOCYTES % (AUTO) 2.4 % (20.0-44.0); MEAN CORPUSCULAR HEMOGLOBIN 26 PG (26.0-33.0); MEAN CORPUSCULAR HGB CONC 31 g/dl (31.0-36.0); MEAN CORPUSCULAR VOLUME 83 fL (80-96); MONOCYTES # (AUTO) 1.3 K/uL (0.1-1.30); MONOCYTES % (AUTO) 6.3 % (2.0-12.0); NEUTROPHILS # (AUTO) 19.2 K/uL (1.8-8.9); NEUTROPHILS % (AUTO) 91.2 % (43.0-81.0); PLATELET COUNT (AUTO) 259 K/uL (150-450); RED BLOOD CELL COUNT(AUTO) 2.99 MIL/uL (4.5-6.0); RED CELL DISTRIBUTION WIDTH 17.2 % (11.5-15.0); WHITE BLOOD COUNT (AUTO) 21.1 K/uL (4.3-11.0)
[2023-07-25 05:24] LABS: CALCIUM, SERUM 9.1 mg/dL (8.5-10.1); CARBON DIOXIDE 27 mmol/L (21-32); CHLORIDE 95 mmol/L (98-107); CREATININE 3.8 mg/dL (0.6-1.3); GLUCOSE 145 mg/dL (74-106); POTASSIUM 3.9 mmol/L (3.5-5.1); SODIUM SERUM 133 mmol/L (136-145); UREA NITROGEN, BLOOD 67 mg/dL (7-18)
[2023-07-25 05:37] LABS: ANISOCYTOSIS 1+; LYMPHOCYTES % (MANUAL) 2 % (16-48); MONOCYTES % (MANUAL) 3 % (0-11.0); NEUTROPHILS % (MANUAL) 95 (42-76); PLATELET ESTIMATE ADEQUATE
[2023-07-25 05:38] LABS: OVALOCYTES 1+
[2023-07-25] MEDS: PANTOPRAZOLE 40 MG/PACK PACK PO SCH ×2 (09:00→16:25)
[2023-07-25] MEDS: EZETIMIBE 10 MG TABLET PO SCH (09:00)
[2023-07-25] MEDS: CIPROFLOXACIN HCL 0.3% 5 ML BOTTLE EACHEYE SCH ×2 (09:34→16:26)
[2023-07-25] MEDS ORDERED: NOREPINEPHRINE 8 MG in IV NS 0.9% 250ML IV PRN (11:00)
[2023-07-25 12:30] LABS: HEMOGLOBIN 7.4 g/dL (13.5-17.5)
[2023-07-26 09:10] LABS: HEPATITIS B SURFACE AB Non Reactive (.)
== END 2023-07-25 21:14 | DRG 871 ==
LOC: ER 13:45 → ICU 18:55
PROVIDERS: ADMIT Internal Medicine; ATTEND Internal Medicine
PROC: 5A1D70Z Performance of Urinary Filtration, Intermittent, Less than 6 Hours Per Day (ICD-10-PCS; principal; 2023-07-22)
PROC: 02HV33Z Insertion of Infusion Device into Superior Vena Cava, Percutaneous Approach (ICD-10-PCS; 2023-07-22)
PROC: B548ZZA Ultrasonography of Superior Vena Cava, Guidance (ICD-10-PCS; 2023-07-22)
PROC: 30233N1 Transfusion of Nonautologous Red Blood Cells into Peripheral Vein, Percutaneous Approach (ICD-10-PCS; 2023-07-22)
DX: A41.9 Sepsis, unspecified organism (principal); E43 Unspecified severe protein-calorie malnutrition; G92.8 Other toxic encephalopathy; N18.6 End stage renal disease; J69.0 Pneumonitis due to inhalation of food and vomit; R65.21 Severe sepsis with septic shock; I13.2 Hypertensive heart and chronic kidney disease with heart failure and with stage 5 chronic kidney disease, or end stage renal disease; N39.0 Urinary tract infection, site not specified; D68.69 Other thrombophilia; M46.25 Osteomyelitis of vertebra, thoracolumbar region; D63.8 Anemia in other chronic diseases classified elsewhere; E11.22 Type 2 diabetes mellitus with diabetic chronic kidney disease; E78.5 Hyperlipidemia, unspecified; E87.5 Hyperkalemia; E88.09 Other disorders of plasma-protein metabolism, not elsewhere classified; I48.91 Unspecified atrial fibrillation; Z95.0 Presence of cardiac pacemaker; R00.1 Bradycardia, unspecified; Z99.2 Dependence on renal dialysis; Z79.01 Long term (current) use of anticoagulants; I50.9 Heart failure, unspecified; H10.9 Unspecified conjunctivitis; H70.93 Unspecified mastoiditis, bilateral; E11.69 Type 2 diabetes mellitus with other specified complication; Z85.528 Personal history of other malignant neoplasm of kidney; N25.0 Renal osteodystrophy; R79.89 Other specified abnormal findings of blood chemistry; N40.0 Benign prostatic hyperplasia without lower urinary tract symptoms; Z66 Do not resuscitate
CPT/HCPCS: 36415; 70450-TC; 71045-TC; 71250-TC; 80048-TC; 80053-TC; 80076-TC; 80202-TC; 83605-TC; 83735-TC; 84100-TC; 84484-TC; 85025-TC; 85027-TC; 85730-TC; 86706; 86850-TC; 87040-TC; 87081-TC; 87340; 90935-TC; 93307-TC; A4223; A4624; A6253; C9113; G0378; J0692; J2543; J3370; J7030; J7050; J7060; P9016